=== PATIENT | male | born 2000 | race Caucasian/White ===

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

== ENCOUNTER 2022-01-26 21:09 | Emergency (ER) | payer BC, OTHER | END 2022-01-26 23:32 | disposition home or self-care (01) | LOC: MADERS 21:09 | DX: M54.50 Low back pain, unspecified (principal); F17.210 Nicotine dependence, cigarettes, uncomplicated | CPT/HCPCS: 99283 ==

== ENCOUNTER 2022-03-08 07:05 | Emergency (ER) | payer SELFPAY ==
[2022-03-08] MEDS ORDERED: Ibuprofen 600 MG TAB ONE (07:26)
[2022-03-08] MEDS ORDERED: Acetaminophen 500 MG TAB ONE (07:26)
== END 2022-03-08 08:00 | disposition home or self-care (01) ==
LOC: MADERS 07:05
DX: U07.1 COVID-19 (principal); F17.210 Nicotine dependence, cigarettes, uncomplicated
CPT/HCPCS: 99283; U0003; U0005

== ENCOUNTER 2022-03-15 18:23 | Emergency (ER) | payer SELFPAY | END 2022-03-15 19:09 | disposition home or self-care (01) | LOC: MADERS 18:23 | DX: U07.1 COVID-19 (principal); F17.210 Nicotine dependence, cigarettes, uncomplicated | CPT/HCPCS: 99283 ==